=== PATIENT | female | born 2000 | race Caucasian/White ===

== ENCOUNTER 2018-02-06 15:34 | Emergency (ER) | payer OTHER, MEDICAID | END 2018-02-06 17:25 | disposition home or self-care (01) | LOC: FTE 15:34 | DX: R07.9 Chest pain, unspecified (principal) | CPT/HCPCS: 71045; 93005; 99284-25 ==

== ENCOUNTER 2018-04-21 21:53 | Emergency (ER) | payer OTHER ==
[2018-04-21] MEDS ORDERED: DIPHENHYDRAMINE 50 MG INJ (22:33)
[2018-04-21] MEDS: CEPHALEXIN 500 MG CAP PO (22:34)
[2018-04-21] MEDS: DIPHENHYDRAMINE 25 MG CAP PO (22:34)
== END 2018-04-21 22:20 | disposition home or self-care (01) ==
LOC: E/R 22:20
DX: S40.861A Insect bite (nonvenomous) of right upper arm, initial encounter (principal); S60.562A Insect bite (nonvenomous) of left hand, initial encounter; W57.XXXA Bitten or stung by nonvenomous insect and other nonvenomous arthropods, initial encounter; Y92.9 Unspecified place or not applicable
CPT/HCPCS: 99282; J1200

== ENCOUNTER 2019-01-12 21:41 | Emergency (ER) | payer OTHER | END 2019-01-12 23:03 | disposition home or self-care (01) | LOC: FTE 21:41 | DX: T78.1XXA Other adverse food reactions, not elsewhere classified, initial encounter (principal); K13.79 Other lesions of oral mucosa | CPT/HCPCS: 99282; Z7502 ==